=== PATIENT | male | born 1965 | race Hispanic/Latino ===

== ENCOUNTER 2016-12-30 13:05 | Emergency (ER) | payer SELFPAY ==
[2016-12-30 14:42] LABS: Basophils % (Auto) 0.6 % (0.0-1.8); Eosinophils % (Auto) 0.6 % (0.0-4.3); Hematocrit 48.9 % (35.5-45.6); Hemoglobin 16.3 gm/dl (11.8-15.2); Mean Corpuscular HGB Conc 33 % (32-34); Mean Corpuscular Hemoglobin 31 pg (28-32); Mean Corpuscular Volume 94 fl (84-94); Platelet Count 211 K/mm3 (140-440); Red Blood Count 5.21 M/mm3 (3.65-5.03); Red Cell Distribution Width 13.3 % (13.2-15.2); White Blood Count 11.4 K/mm3 (4.5-11.0)
[2016-12-30 14:58] LABS: Anion Gap 23 mmol/L; Blood Urea Nitrogen 16 mg/dL (9-20); Calcium 9.4 mg/dL (8.4-10.2); Carbon Dioxide 20 mmol/L (22-30); Chloride 99.6 mmol/L (98-107); Glucose 102 mg/dL (75-100); Potassium 4.7 mmol/L (3.6-5.0); Sodium 138 mmol/L (137-145)
--- NOTE | 2016-12-30 15:07 | Emergency Department Report ---
<ROBBI REYES - Last Filed: 12/30/16 17:08> ED Chest Pain HPI - General Chief Complaint: Chest Pain Stated Complaint: CHEST TIGHTNESS while in class today. he takes class for thc while on probation. states pretty woman made his chest hurt. he then went to [facility] where he reports bp was elevated. asa at [facility]/ Time Seen by Provider: 12/30/16 14:49 - Related Data Previous Rx's Medication Instructions Recorded Last Taken Type HYDROcodone/APAP 5-325 [Coulters 1 each PO Q6HR PRN #14 tablet 09/30/15 Unknown Rx 5-325 mg TAB] Allergies Allergy/AdvReac Type Severity Reaction Status Date / Time No Known Allergies Allergy Unverified 06/11/14 20:18 ED Review of Systems ROS: Stated complaint: CHEST TIGHTNESS Other details as noted in HPI ED Past Medical Hx - Medications Home Medications: Home Medications Medication Instructions Recorded Confirmed Last Taken Type HYDROcodone/APAP 5-325 [Coulters 1 each PO Q6HR PRN #14 tablet 09/30/15 Unknown Rx 5-325 mg TAB] ED Course Vital Signs 12/30/16 12/30/16 12/30/16 13:49 14:00 14:01 Temperature 98.0 F 98.2 F Pulse Rate 90 91 H 94 H Respiratory 16 19 18 Rate Blood Pressure 136/86 123/85 135/96 O2 Sat by Pulse 97 97 96 Oximetry ED Medical Decision Making - Lab Data Result diagrams: 12/30/16 14:29 12/30/16 14:29 Laboratory Results - last 24 hr 12/30/16 12/30/16 14:29 14:29 WBC 11.4 H RBC 5.21 H Hgb 16.3 H Hct 48.9 H MCV 94 MCH 31 MCHC 33 RDW 13.3 Plt Count 211 Lymph % (Auto) 25.8 [place] % (Auto) 6.3 Eos % (Auto) 0.6 Baso % (Auto) 0.6 Lymph # 2.9 [place] # 0.7 Eos # 0.1 Baso # 0.1 Seg Neutrophils % 66.7 Seg Neutrophils # 7.6 Sodium 138 Potassium 4.7 Chloride 99.6 Carbon Dioxide 20 L Anion Gap 23 BUN 16 Creatinine 0.8 Estimated GFR > 60 BUN/Creatinine Ratio 20.00 Glucose 102 H Calcium 9.4 Troponin T < 0.010 - EKG Data -: EKG Interpreted by Me - EKG Data 12/30/16 16:08 Sinus 86 normal axis normal intervals RSR prime no ST-T wave changes - Medical Decision Making I have seen and examined this patient myself. I agree with the PA or HVAC LEAD plan as discussed. 51-year-old male with chest pain. His story is atypical and unlikely to be ACS. Plan to discharge the patient with follow-up PCP. Zach Reyes Critical care attestation.: If time is entered above; I have spent that time in minutes in the direct care of this critically ill patient, excluding procedure time. ED Disposition Clinical Impression: Non-cardiac chest pain Disposition: DC- TO HOME OR SELFCARE Condition: Stable Instructions: Chest Pain (ED) Additional Instructions: rest take home meds continue to dec cig smoking follow up cardiology next week continue home meds-aspirin daily given your cardiac history follow up with clinic as we discussed cardiac diet no alcohol continue you erik. patch drink a lot of water Referrals: PRIMARY CARE, [Primary Care Provider] - 3-5 Days JAUN DODD MD [Staff Physician] - 3-5 Days CHETNA HAMILTON MD [Staff Physician] - 3-5 Days <QUE-MICKEY MARTINS - Last Filed: 12/30/16 18:15> ED Chest Pain HPI - General Source: patient Mode of arrival: Stretcher Limitations: No Limitations - History of Present Illness Complaint: chest pain -: Gradual Onset: during rest Pain Location: substernal, left chest Quality: tightness Consistency: intermittent Improves With: nothing Worsens With: other (bp) Context: other (accused of thc and on probation was in class when this started today) Treatments Prior to Arrival: aspirin, nitroglycerin Aspirin use within the Past 7 Days: (1) Yes - Related Data On Oral Contraceptives: No Heart Score - HEART Score History: Slightly suspicious EKG: Normal Age: 45-65 Risk factors: 1-2 risk factors Troponin: < normal limit HEART Score: 2 - Critical Actions Critical Actions: 0-3 pts:0.9-1.7%risk of adverse cardiac event.Candidate for discharge ED Review of Systems Comment: Unobtainable due to pts medical conditions Constitutional: no symptoms reported, see HPI. denies: chills Eyes: as per HPI. denies: eye pain ENT: as per HPI. denies: ear pain, throat pain Respiratory: no symptoms reported, see HPI. denies: cough, orthopnea Cardiovascular: as per HPI, chest pain, orthopnea. denies: palpitations, dyspnea on exertion Endocrine: no symptoms reported, see HPI. denies: excessive sweating, flushing , intolerance to cold, intolerance to heat Gastrointestinal: as per HPI. denies: abdominal pain, nausea, vomiting Genitourinary: as per HPI. denies: urgency, dysuria Musculoskeletal: as per HPI. denies: back pain Skin: as per HPI. denies: rash, lesions Neurological: as per HPI. denies: headache Psychiatric: as per HPI. denies: anxiety, depression Hematological/Lymphatic: as per HPI. denies: easy bleeding ED Past Medical Hx - Past Medical History Previous Medical History?: Yes Hx Hypertension: Yes Hx Heart Attack/AMI: Yes (2011) - Surgical History Past Surgical History?: Yes Additional Surgical History: KIDNEY SURGERY IN THE PAST "LOWERED KIDNEY?". knee surgery-1986 - Social History Smoking Status: Current Every Day Smoker ED Physical Exam - General Limitations: No Limitations General appearance: alert - Head Head exam: Present: atraumatic - Eye Eye exam: Present: normal appearance - ENT ENT exam: Present: mucous membranes moist - Neck Neck exam: Present: normal inspection - Respiratory Respiratory exam: Present: normal lung sounds bilaterally. 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 clinic referrals given. dc home bp 140/86 BENOIT score - Benoit Score Age > 65: (0) No Aspirin use within the Past 7 Days: (1) Yes 3 or more CAD Risk Factors: (0) No 2 or more Angina events in past 24 hrs: (0) No Known CAD with more than 50% Stenosis: (0) No Elevated Cardiac Markers: (0) No ST Deviation Greater than 0.5mm: (0) No BENOIT Score: 1 ED Medical Decision Making - Lab Data Result diagrams: 12/30/16 14:29 12/30/16 14:29 - Radiology Data Radiology results: image reviewed ED Disposition Is pt being admited?: No Does the pt Need Aspirin: No Time of Disposition: 18:04
[2016-12-30 15:56] LABS: Alanine Aminotransferase 32 units/L (7-56); Albumin 4.8 g/dL (3.9-5); Albumin/Globulin Ratio 1.8 %; Alkaline Phosphatase 46 units/L (35-129); Total Protein 7.5 g/dL (6.3-8.2)
[2016-12-30 16:14] LABS: Bilirubin,Direct < 0.2 mg/dL (0-0.2); Bilirubin,Indirect 0.2 mg/dL
[2016-12-30 18:23] VITALS: BP 145/91
--- NOTE | 2016-12-31 09:15 | XRay Report ---
Single view chest: History: Chest pain. Findings: Normal cardiomediastinal silhouette. Trachea is midline. No consolidation, pneumothorax or pleural effusion. Impression: No acute cardiopulmonary findings.
== END 2016-12-30 18:22 | disposition home or self-care (01) ==
LOC: ED 13:05
DX: R07.89 Other chest pain (principal); I10 Essential (primary) hypertension; I25.2 Old myocardial infarction; F17.200 Nicotine dependence, unspecified, uncomplicated
CPT/HCPCS: 36415; 71010; 80048; 80074; 84484; 85025; 93005; 93010; 99284